=== PATIENT | female | born 1995 | race Caucasian/White ===

== ENCOUNTER 2025-02-08 12:35 | Outpatient (REF) | payer MEDICAID, SELFPAY ==
[2025-02-08 14:27] LABS: Amphetamine Screen Urine Not Detected (Not Detect); Barbiturates, Urine Not Detected (Not Detect); Benzodiazepines Screen Urine Not Detected (Not Detect); Buprenorphine Scr Not Detected (Not Detect); Cannabinoid Screen Urine POSITIVE (Not Detect); Cocaine Screen Urine Not Detected (Not Detect); Fentanyl, urine Not Detected (Not Detect); Methadone Screen, Urine Not Detected (Not Detect); Opiate Screen Urine Not Detected (Not Detect); Oxycodone Screen Urine Not Detected (Not Detect); Phencyclidine Screen Urine Not Detected (Not Detect)
[2025-02-11 05:17] LABS: TS Negative Control Passed; TS Panel A 1; TS Panel B 4; TS Positive Control Passed; TSpotTB Negative (Negative)
== END 2025-02-08 12:36 | disposition home or self-care (01) ==
LOC: HO.LAB 12:35
PROVIDERS: PCP Internal Medicine; Visit Provider Internal Medicine
DX: R78.4 Finding of other drugs of addictive potential in blood (principal); Z11.1 Encounter for screening for respiratory tuberculosis
CPT/HCPCS: 80307; 86481